=== PATIENT | female | born 1980 | race Caucasian/White ===

== ENCOUNTER 2018-10-09 21:42 | Emergency (ER) | payer BC ==
[2018-10-09] MEDS ORDERED: Acetaminophen 500 MG Tab PO ONE (21:51)
--- NOTE | 2018-10-09 22:43 | EDM.PDOC ---
ED HPI GENERAL MEDICAL PROBLEM - General Chief Complaint: General Stated Complaint: fever, swollen glands Time Seen by Provider: 10/09/18 22:00 Source of Information: Reports: Patient History Limitations: Reports: No Limitations - History of Present Illness INITIAL COMMENTS - FREE TEXT/NARRATIVE: 37-year-old female presents to the emergency room with complaints of fever and feeling chilled over the last 24 hours. Patient states that she woke up early Thursday morning approximately at 4:30 and took some Tylenol. Her symptoms did not seem to improve prove and therefore she tried ibuprofen. She is taking 1 additional dose of Tylenol. She states she feels fever and chill she denies sore throat. She denies coughing congestion. She denies any ear pain, shortness of breath or chest tightness. She's not been experiencing any nausea or vomiting. She feels her lymph nodes are swollen around her neck. She denies any significant neck pain. She has some mild achiness complaints. She denies diarrhea or abdominal complaints. No dysuria or hematuria. Onset Date: 10/08/18 Duration: Hour(s):, Constant Location: Reports: Generalized Severity: Moderate Worsens with: Reports: None Associated Symptoms: Reports: Fever/Chills. 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 [No Known Home Meds] 10/09/18 [History] Social & Family History - Tobacco Use Smoking Status *Q: Never Smoker Second Hand Smoke Exposure: Yes - Caffeine Use Caffeine Use: Reports: Coffee, Soda - Recreational Drug Use Recreational Drug Use: No ED ROS GENERAL - Review of Systems Review Of Systems: See Below Constitutional: Reports: Fever, Chills HEENT: Denies: Ear Pain, Eye Pain, Sinus Problem, Throat Pain, Throat Swelling, Vertigo Respiratory: Denies: Shortness of Breath Cardiovascular: Denies: Chest Pain Endocrine: Denies: High Glucose GI/Abdominal: Denies: Abdominal Pain, Nausea, Vomiting : Denies: Dysuria Musculoskeletal: Denies: Neck Pain, Muscle Stiffness Skin: Denies: Rash Neurological: Reports: No Symptoms Psychiatric: Reports: No Symptoms Hematologic/Lymphatic: Reports: No Symptoms Immunologic: Reports: No Symptoms ED EXAM, GENERAL - Physical Exam Exam: See Below Exam Limited By: No Limitations General Appearance: Alert, WD/WN, No Apparent Distress Eye Exam: Bilateral Eye: EOMI Ears: Normal External Exam, Normal Canal, Hearing Grossly Normal, Normal TMs Ear Exam: Bilateral Ear: Auricle Normal, Canal Normal, TM normal Nose: Normal Inspection, Normal Mucosa Throat/Mouth: Normal Inspection, Normal Lips, Normal Teeth, Normal Gums, Normal Oropharynx, No Airway Compromise Head: Atraumatic, Normocephalic Neck: Normal Inspection, Supple, Full Range of Motion, Lymphadenopathy (L), Lymphadenopathy (R) Respiratory/Chest: No Respiratory Distress, Lungs Clear, Normal Breath Sounds, No Accessory Muscle Use, Chest Non-Tender Cardiovascular: No Murmur, Tachycardia GI/Abdominal: Soft Back Exam: Normal Inspection Extremities: Normal Inspection Neurological: Alert, Oriented, Normal Cognition, No Motor/Sensory Deficits Psychiatric: Normal Affect, Normal Mood Skin Exam: Dry, Intact, Normal Color, No Rash, Other (very warm to touch) Lymphatic: Adenopathy Course - Vital Signs Last Recorded V/S: Last Vital Signs Temp 103.1 F H 10/09/18 21:55 Pulse 118 H 10/09/18 21:50 Resp 20 10/09/18 21:50 BP 159/94 H 10/09/18 21:50 Pulse Ox 95 10/09/18 21:50 - Orders/Labs/Meds Orders: Active Orders 24 hr Category Date Time Status CBC WITH AUTO DIFF [HEME] Stat Lab 10/09/18 22:20 Ordered INFLUENZA A,B, H1N1 BY PCR [MREF] Stat Lab 10/09/18 22:20 Ordered STREP SCRN A RAPID W CULT CONF [RM] Stat Lab 10/09/18 22:20 Ordered Meds: Medications Discontinued Medications Generic Name Dose Route Start Last Admin Trade Name Freq PRN Reason Stop Dose Admin Acetaminophen 1,000 mg 10/09/18 21:51 10/09/18 21:55 Tylenol Extra Strength PO 10/09/18 21:52 1,000 mg ONETIME ONE Administration - Re-Assessments/Exams Free Text/Narrative Re-Assessment/Exam: 10/09/18 22:51 Patient is given thousand milligrams of Tylenol by mouth. Her temperature is improved to 101. Patient reports she's feeling better. Departure - Departure Time of Disposition: 23:30 Disposition: Home, Self-Care 01 Condition: Fair Clinical Impression: Strep throat - Discharge Information Referrals: Crista Sarah PA-C [Primary Care Provider] - - My Orders Last 24 Hours: My Active Orders 10/09/18 22:20 CBC WITH AUTO DIFF [HEME] Stat INFLUENZA A,B, H1N1 BY PCR [MREF] Stat STREP SCRN A RAPID W CULT CONF [RM] Stat - Assessment/Plan Last 24 Hours: My Active Orders 10/09/18 22:20 CBC WITH AUTO DIFF [HEME] Stat INFLUENZA A,B, H1N1 BY PCR [MREF] Stat STREP SCRN A RAPID W CULT CONF [RM] Stat Assessment:: Strep throat Plan: 1. Zithromax 500 mg by mouth daily for 5 days 2. Tylenol thousand milligrams every 6 hours for fevers 3. Ibuprofen 800 mg every 8 hours may take in between Tylenol if fevers and aches persist. 4. Continue with oral hydration 5. Encouraging rest 6. Follow-up with your primary care 4872 hours if symptoms are not improving.
[2018-10-09] MEDS ORDERED: Azithromycin 250 MG Tab PO ONE ×2 (23:20→23:25)
[2018-10-09] MEDS ORDERED: Azithromycin 250 MG Tab ONE ×2 (23:26→23:27)
== END 2018-10-09 23:43 | disposition home or self-care (01) ==
LOC: KA.ED 21:42
DX: J02.0 Streptococcal pharyngitis (principal); Z88.1 Allergy status to other antibiotic agents; Z88.2 Allergy status to sulfonamides; Z77.22 Contact with and (suspected) exposure to environmental tobacco smoke (acute) (chronic)
CPT/HCPCS: 36415; 85025; 87430; 87804; 99283; A9270-GY

== ENCOUNTER 2020-02-04 15:40 | Emergency (ER) | payer BC ==
[2020-02-04] MEDS ORDERED: methylPREDNISolone Sodium Succinate 125 MG/2 ML SDV IM ONE (15:54)
[2020-02-04] MEDS ORDERED: Ketorolac 60 MG/2 ML SDV IM ONE (15:54)
--- NOTE | 2020-02-04 15:56 | EDM.PDOC ---
ED HPI GENERAL MEDICAL PROBLEM - General Chief Complaint: Back Pain or Injury Stated Complaint: BACK PAIN Time Seen by Provider: 02/04/20 15:42 Source of Information: Reports: Patient History Limitations: Reports: No Limitations - History of Present Illness INITIAL COMMENTS - FREE TEXT/NARRATIVE: 39 YO SWAPNIL presents to ER complaining of back pain that began after working outside in her garden today. Pt reports pain is to her low back with some radiation into her hips. Pt reports no saddle paraesthesias, or bowel/bladder dysfunction. Pt reports bending over and sitting down are the most painful. Pt reports 1 previous episode of back pain in the past. Pt denies any lower extremity weakness or numbness. Pt denies taking any medication prior to arrival to ER. Onset: Today Location: Reports: Back Quality: Reports: Ache Severity: Moderate Improves with: Reports: None Worsens with: Reports: None Associated Symptoms: Reports: No Other Symptoms Middle Back Pain Score (Numeric/FACES): 5 - Related Data Allergies Allergy/AdvReac Type Severity Reaction Status Date / Time amoxicillin Allergy Hives Verified 02/04/20 15:41 Sulfa (Sulfonamide Allergy Hives Verified 02/04/20 15:41 Antibiotics) Home Meds: Home Meds Metaxalone [Skelaxin] 800 mg PO TID PRN #10 tablet 02/04/20 [Rx] predniSONE [Prednisone] 20 mg PO DAILY #15 tablet 02/04/20 [Rx] traMADol [Ultram] 50 mg PO Q4H PRN #10 tab 02/04/20 [Rx] 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: Social & Family History - Caffeine Use Caffeine Use: Reports: Coffee, Soda ED ROS GENERAL - Review of Systems Review Of Systems: See Below Constitutional: Reports: No Symptoms HEENT: Reports: No Symptoms Respiratory: Reports: No Symptoms Cardiovascular: Reports: No Symptoms Endocrine: Reports: No Symptoms GI/Abdominal: Reports: No Symptoms : Reports: No Symptoms Musculoskeletal: Reports: Back Pain Skin: Reports: No Symptoms Neurological: Reports: No Symptoms Psychiatric: Reports: No Symptoms Hematologic/Lymphatic: Reports: No Symptoms Immunologic: Reports: No Symptoms ED EXAM,LOWER BACK PAIN/INJURY - Physical Exam Exam: See Below Exam Limited By: No Limitations General Appearance: Alert, WD/WN, No Apparent Distress Head: Atraumatic, Normocephalic Neck: Normal Inspection, Supple, Non-Tender, Full Range of Motion Respiratory/Chest: No Respiratory Distress, Lungs Clear, Normal Breath Sounds, No Accessory Muscle Use, Chest Non-Tender Cardiovascular: Normal Peripheral Pulses, Regular Rate, Rhythm, No Edema, No Gallop, No JVD, No Murmur, No Rub GI/Abdominal: Normal Bowel Sounds, Soft, Non-Tender, No Organomegaly, No Distention, No Abnormal Bruit, No Mass Back Exam: Muscle Spasm. No: Paraspinal Tenderness, Vertebral Tenderness Extremities: Normal Inspection, Normal Range of Motion, Non-Tender, No Pedal Edema, Normal Capillary Refill Neurological: Alert, Normal Mood/Affect, Normal Dorsiflexion, CN II-XII Intact, Normal Plantar Flexion, Normal Gait, Normal Reflexes, No Motor/Sensory Deficits , Oriented x 3 Course - Vital Signs Last Recorded V/S: Last Vital Signs Temp 37.2 C 02/04/20 15:42 Pulse 96 02/04/20 15:42 Resp 16 02/04/20 15:42 BP 150/99 H 02/04/20 15:42 Pulse Ox 97 02/04/20 15:42 - Orders/Labs/Meds Labs: Laboratory Tests 02/04/20 Range/Units 15:56 Urine HCG, Qual Negative (NEGATIVE) Meds: Medications Discontinued Medications Generic Name Dose Route Start Last Admin Trade Name Rehanq PRN Reason Stop Dose Admin Cyclobenzaprine HCl 20 mg 02/04/20 16:32 Flexeril PO 02/04/20 16:33 ONETIME ONE Ketorolac Tromethamine 60 mg 02/04/20 15:54 02/04/20 16:01 Toradol IM 02/04/20 15:55 60 mg ONETIME ONE Administration Methylprednisolone Sodium Succinate 125 mg 02/04/20 15:54 02/04/20 16:04 Solu-Medrol IM 02/04/20 15:55 125 mg ONETIME ONE Administration Prednisone 60 mg 02/04/20 16:31 Prednisone PO 02/04/20 16:32 ONETIME ONE Tramadol HCl 200 mg 02/04/20 16:31 Ultram PO 02/04/20 16:32 ONETIME ONE - Radiology Interpretation Free Text/Narrative:: lumbar xray- NAD Departure - Departure Time of Disposition: 16:23 Disposition: Home, Self-Care 01 Condition: Good Clinical Impression: Sacroiliac inflammation - Discharge Information Prescriptions: Metaxalone [Skelaxin] 800 mg PO TID PRN #10 tablet PRN Reason: Muscle Spasm predniSONE [Prednisone] 20 mg PO DAILY #15 tablet traMADol [Ultram] 50 mg PO Q4H PRN #10 tab PRN Reason: Pain Instructions: Sacroiliac Joint Dysfunction Referrals: PCP,Not In Area [Ordering Only Provider] - Forms: ED Department Discharge Additional Instructions: 1. discharge home 2. prednisone 60mg everyday x 5 days 3. ultram 50mg #10 - 1 tablet every 4-6 hours as needed for pain 4. skelaxin 800mg at night time for muscle spasms #10 5. follow up with PCP for recheck next 5-7 days if no improvement 6. return to ER for worsening symptoms Sepsis Event Note - Focused Exam Vital Signs: Vital Signs Temp Pulse Resp BP Pulse Ox 02/04/20 15:42 37.2 C 96 16 150/99 H 97 Date Exam was Performed: 02/04/20 Time Exam was Performed: 16:48 - Assessment/Plan Assessment:: 1. sacroiliac pain Plan: 1. discharge home 2. prednisone 60mg everyday x 5 days 3. ultram 50mg #10 - 1 tablet every 4-6 hours as needed for pain 4. skelaxin 800mg at night time for muscle spasms #10 5. follow up with PCP for recheck next 5-7 days if no improvement 6. return to ER for worsening symptoms
[2020-02-04] MEDS ORDERED: predniSONE 20 MG Tab PO ONE (16:31)
[2020-02-04] MEDS ORDERED: traMADol 50 MG Tab PO ONE (16:31)
--- NOTE | 2020-02-04 16:31 | CR ---
[id number] RAD/RAD Lumbar Spine 2-3V EXAM: AP AND LATERAL LUMBAR SPINE. INDICATION: Back pain COMPARISON: No previous similar exam is available for comparison. FINDINGS: No fracture or subluxation is seen. There is preservation of height of disc spaces and vertebrae. The pedicles are intact. There appears to be an IUD in the pelvis IMPRESSION: No fracture or subluxation. Anthony Alberto MD 02/04/20 [id number] Thank you for allowing us to participate in the care of your patient.
[2020-02-04] MEDS ORDERED: Cyclobenzaprine 10 MG Tab PO ONE (16:32)
== END 2020-02-04 16:50 | disposition home or self-care (01) ==
LOC: KA.ED 15:40
DX: M46.1 Sacroiliitis, not elsewhere classified (principal); Z88.1 Allergy status to other antibiotic agents; Z88.2 Allergy status to sulfonamides
CPT/HCPCS: 72100; 81025; 96372; 99284-25; A9270-GY; J1885; J2930; J7512